=== PATIENT | female | born 1935 | race Hispanic/Latino ===

== ENCOUNTER 2016-06-13 13:55 | Observation (INO) | payer MEDICARE ==
[2016-06-13 13:55] VITALS: BMI 23.4
[2016-06-13] MEDS ORDERED: Sodium Chloride 0.9% 1,000 ML IV STA (14:38)
[2016-06-13] MEDS ORDERED: Iohexol 240 (50 ml) PO ONE (14:39)
--- NOTE | 2016-06-13 14:47 | ED PDOC ---
HPI:Nausea, Vomiting, Diarrhea Time Seen by Provider: 06/13/16 14:13 Chief Complaint (Nursing): Fever Chief Complaint (Provider): Nausea/Vomiting/Diarrhea History Per: Patient, Family (niece) History/Exam Limitations: no limitations Onset/Duration Of Symptoms: Hrs (this afternoon, 06/13/2016) Current Symptoms Are (Timing): Still Present Have you had recent travel within the past 21 days to any of the following countries: [place], [place], [place] or [place]?: No Severity: Moderate Associated Symptoms: Fever, Chills, Nausea, Vomiting (non-bloody, non-bilious), Diarrhea Exacerbating Factors: None Alleviating Factors: None Last Bowel Movement: Today Additional History Per: EMS Additional Complaint(s): Jazmin Rossi is an 81 year old female, with a past medical history of coronary artery disease, hypertension, type 2 diabetes, and pneumonia, who presents to the emergency department via EMS for the evaluation of nausea, two episodes of non-bloody or bilious vomiting, and one episode of watery diarrhea, that the patient has been experiencing since this afternoon on 06/13/2016. Patient's niece reports her having an episode of generalized weakness inclusive of difficulty ambulating and altered mental status, in which she wouldn't respond at all, so she called 911; however, since entering the ambulance, the patient perked up and began talking again. PMD: Sage Valencia Past Medical History Reviewed: Historical Data, Nursing Documentation, Vital Signs Vital Signs: Last Vital Signs Temp 102 F H 06/13/16 13:58 Pulse 120 H 06/13/16 13:58 Resp 18 06/13/16 13:58 BP 133/65 06/13/16 13:58 Pulse Ox 95 06/13/16 13:58 - Medical History PMH: Back Problems, CAD, CVA (no deficits), Diabetes (type 2), HTN, Osteoporosis , Pneumonia Denies: Arthritis, Atrial Fibrillation, Cardia Arrhythmia, CHF, COPD, Hypercholesterolemia, Hypothyroidism, Mitral Valve Prolapse, Peripheral Edema, Chronic Kidney Disease, Rheumatoid Arthritis - Surgical History Surgical History: Cholecystectomy, Hernia Repair Denies: Pacemaker Other surgeries: Cataract Extraction - Family History Family History: States: No Known Family Hx - Immunization History Hx Tetanus Toxoid Vaccination: No Hx Influenza Vaccination: No Hx Pneumococcal Vaccination: No - Home Medications Home Medications: Ambulatory Orders Medication Instructions Recorded Cholecalciferol [Vitamin D 1000 IU] 1,000 unit PO DAILY 06/13/16 Cyanocobalamin [Vitamin B12 1000 1,000 mcg PO DAILY 06/13/16 mcg Tab] Ginkgo Biloba 1 cap PO DAILY 06/13/16 Losartan/Hydrochlorothiazide 1 tab PO DAILY 06/13/16 [Hyzaar 100-12.5 Tablet] Meloxicam [Mobic] 15 mg PO DAILY 06/13/16 Methotrexate 25 mg PO SAT 06/13/16 Metoprolol Tartrate [Lopressor] 25 mg PO DAILY 06/13/16 Rivastigmine 9.5 mg/24 hr [Exelon 1 patch TD DAILY 06/13/16 9.5 mg/24 hr Patch] - Allergies Allergies/Adverse Reactions: Allergies Allergy/AdvReac Type Severity Reaction Status Date / Time No Known Allergies Allergy Unverified 03/28/16 11:38 Review of Systems ROS Statement: Except As Marked, All Systems Reviewed And Found Negative Constitutional: Positive for: Fever, Chills Gastrointestinal: Positive for: Nausea, Vomiting (non-bloody or bilious), Diarrhea (watery) Neurological: Positive for: Weakness, Altered Mental Status (one episode) Physical Exam - Reviewed Nursing Documentation Reviewed: Yes Vital Signs Reviewed: Yes - Physical Exam Appears: Positive for: Well (interactive and smiling), Non-toxic, No Acute Distress Head Exam: Positive for: ATRAUMATIC, NORMOCEPHALIC Skin: Positive for: Normal Color, Warm, Dry Neck: Positive for: Normal, Painless ROM Cardiovascular/Chest: Positive for: Regular Rate, Rhythm. Negative for: Murmur Respiratory: Positive for: Normal Breath Sounds. Negative for: Respiratory Distress Gastrointestinal/Abdominal: Positive for: Normal Exam, Soft. Negative for: Tenderness Back: Positive for: Normal Inspection. Negative for: L CVA Tenderness, R CVA Tenderness Extremity: Positive for: Normal ROM. Negative for: Tenderness Neurologic/Psych: Positive for: Alert, Oriented - Laboratory Results Result Diagrams: 06/14/16 04:00 06/14/16 05:30 - ECG O2 Sat by Pulse Oximetry: 95 (RA) Pulse Ox Interpretation: Normal Medical Decision Making Medical Decision Makin:13 Initial Impression: gastroenteritis versus diverticulitis or other abdominal related issues Initial Plan: * CT Abdomen & Pelvis w/ PO and IV Contrast * EKG * Chest X-Ray * Venous Blood Gas * CBC * CMP * Troponin I * Lipase * UA * Sodium Chloride 0.9% 1,000 ml IV at 500 mls/hr * Zofran 4 mg IVP * Blood Culture * Urine Culture * ED Observation 14:39 Patient will be placed within ED Observation secondary to time-extensive ED workup. Pending imaging studies. See Observation note for further updates. Scribe Attestation: Documented by Sukhi Navarro, acting as a scribe for Carla Bernal MD. Provider Scribe Attestation: All medical record entries made by the Scribe were at my direction and personally dictated by me. I have reviewed the chart and agree that the record accurately reflects my personal performance of the history, physical exam, medical decision making, and the department course for this patient. I have also personally directed, reviewed, and agree with the discharge instructions and disposition. ED OBSERVATION Date of observation admission: 06/13/16 Time of observation admission: 14:39 - Observation admission statement Patient is being placed in observation because:: Time-extensive ED workup. - Goals of Observation Goals of observation are:: Pending imaging studies. Disposition - Clinical Impression Clinical Impression: Gastroenteritis - Disposition Disposition: Transfer of Care Disposition Time: 15:00 Condition: SERIOUS Patient Signed Over To: Azalea Torres Handoff Comments: pending CT
[2016-06-13 14:59] LABS: VENOUS BLOOD GAS BASE EXCESS 7.4 mmol/L (0.0-2.0); VENOUS BLOOD GAS PCO2 40 mmHg (40-60)
[2016-06-13 15:04] LABS: BASO % 0.3 % (0.0-2.0); HEMATOCRIT 35.6 % (34.0-47.0); LYMPH # 0.2 K/uL (1.0-4.3); LYMPH % 1.7 % (20.0-40.0); MEAN CELL VOLUME 93.3 fl (81.0-99.0); MEAN CORPUSCULAR HEMOGLOBIN 31.3 pg (27.0-31.0); MEAN CORPUSCULAR HGB CONC 33.6 g/dL (33.0-37.0); MEAN PLATELET VOLUME 6.7 fl (7.2-11.7); MONO # 0.3 K/uL (0.0-0.8); MONO % 2.4 % (0.0-10.0); NEUT # 11.3 K/uL (1.8-7.0); NEUT % 95.6 % (50.0-75.0); PLATELET COUNT 221 K/uL (130-400); RED CELL DISTRIBUTION WIDTH 12.2 % (11.5-14.5); WHITE BLOOD COUNT 11.8 K/uL (4.8-10.8)
[2016-06-13 15:16] LABS: ALB/GLOB RATIO 1.1 (1.0-2.1); ALKALINE PHOSPHATASE 90 U/L (38-126); ALT/SGPT 29 U/L (9-52); AST/SGOT 38 U/L (14-36); BILIRUBIN,TOTAL 0.8 mg/dl (0.2-1.3); BLOOD UREA NITROGEN 19 mg/dl (7-17); CALCIUM 9.4 mg/dL (8.4-10.2); CARBON DIOXIDE 26 mmol/L (22-30); CHLORIDE 102 mmol/L (98-107); GFR AFRICAN-AMERICAN > 60; GLUCOSE,RANDOM 118 mg/dL (65-105); LIPASE 190 U/L (23-300); POTASSIUM 3.5 MMOL/L (3.6-5.0); SODIUM 138 mmol/l (132-148); TOTAL PROTEIN 7.4 G/DL (6.3-8.2)
[2016-06-13] MEDS ORDERED: Iohexol 240 (50 ml) ONE (15:20)
--- NOTE | 2016-06-13 15:33 | ED PDOC ---
- Laboratory Results Result Diagrams: 06/13/16 14:51 06/13/16 14:51 - ECG O2 Sat by Pulse Oximetry: 95 (RA) Medical Decision Making Medical Decision Makin:00 Patient transferred over to provider by Dr. Aguirre. Pending ER workup, re- assessment, and final disposition. 15:30 Patient's labs demonstrated early hypokalemia and early renal insufficiency, c/ w dehydration. DW family and pt. Patient feels well, however family reports that she always says she feels well and that earlier today at home she was very lightheaded and unsteady from the vomiting and fever. Will hospitalize in obs for continued IV hydration, pending CT scan. Scribe Attestation: Documented by Sukhi Navarro, acting as a scribe for Azalea Torres MD. Provider Scribe Attestation: All medical record entries made by the Scribe were at my direction and personally dictated by me. I have reviewed the chart and agree that the record accurately reflects my personal performance of the history, physical exam, medical decision making, and the department course for this patient. I have also personally directed, reviewed, and agree with the discharge instructions and disposition. Disposition - Clinical Impression Clinical Impression: Gastroenteritis - POA Present On Arrival: None - Disposition Disposition: Hospitalized as Observation Patient Disposition Time: 14:40
[2016-06-13 16:12] LABS: RBC URINE 1 /hpf (0-3); URINE BILIRUBIN NEGATIVE (NEGATIVE); URINE BLOOD NEGATIVE (NEGATIVE); URINE COLOR YELLOW (YELLOW); URINE GLUCOSE (UA) NEG (Normal); URINE KETONE NEGATIVE (NEGATIVE); URINE LEUKOCYTE ESTERASE NEG Leu/uL (Negative); URINE PROTEIN NEGATIVE (NEGATIVE); URINE UROBILINOGEN 0.2-1.0 mg/dL (0.2-1.0); WBC URINE 2 /hpf (0-5)
[2016-06-13 17:06] LABS: NEUTROPHIL 97 % (42-75); TOTAL CELLS COUNTED 100
[2016-06-13] MEDS ORDERED: Iohexol 300 100 ML IJ ONE (17:16)
[2016-06-13] MEDS ORDERED: Sodium Chloride 0.9% 50 ML IV ONE (17:16)
--- NOTE | 2016-06-13 18:46 | CT ---
PROCEDURE: CT Abdomen and Pelvis with contrast HISTORY: n/v/d, fever COMPARISON: Comparison is made to the previous study dated 10/01/2010 TECHNIQUE: Axial and reformatted coronal and sagittal CT images of the abdomen and pelvis were obtained after IV and oral contrast administration. Contrast dose: 90 mL Omnipaque 300 Radiation dose: Total exam DLP = 532.9 mGy-cm. This CT exam was performed using one or more of the following dose reduction techniques: Automated exposure control, adjustment of the mA and/or kV according to patient size, and/or use of iterative reconstruction technique. FINDINGS: LOWER THORAX: Small cystic formation seen at the right lower lobe again. No evidence of pneumonia. The heart is mildly to moderately enlarged. Small hiatus hernia seen. LIVER: No evidence of suspicious mass or acute pathology in the liver. GALLBLADDER AND BILE DUCTS: Status post cholecystectomy. PANCREAS: Unremarkable. No gross lesion or ductal dilatation. SPLEEN: Unremarkable. ADRENALS: Unremarkable. No mass. KIDNEYS AND URETERS: The collecting system of the kidneys are mildly dilated demonstrate mild wall thickening. Correlate clinically for infectious process/ UTI. Mild perinephric stranding and trace fluid seen bilaterally. The kidneys are otherwise enhance symmetrically. VASCULATURE: Unremarkable. No aortic aneurysm. BOWEL: Colonic diverticulosis are noted more prominent at the sigmoid colon. Diffuse sigmoid colon wall thickening seen. APPENDIX: No evidence of appendicitis PERITONEUM: Unremarkable. No free fluid. No free air. LYMPH NODES: Unremarkable. No enlarged lymph nodes. BLADDER: Unremarkable. REPRODUCTIVE: Unremarkable. BONES: No acute fracture. OTHER FINDINGS: Again seen is low-attenuation lesion at the right mid to upper abdomen just inferior to the pancreatic head measures 1.7 centimeter appears smaller compared to the previous exam. IMPRESSION: Diffuse wall thickening of the collecting system of the kidneys. Correlate clinically for UTI. Mild bilateral perinephric stranding and trace fluid seen. Otherwise no evidence of acute pathology in the abdomen and pelvis. Large sigmoid colon diverticulosis associated with diffuse wall thickening. No definite evidence of diverticulitis.
[2016-06-13] MEDS: Dextrose 5%/Lactated Ringer's 1,000 ML IV SCH (22:38)
--- NOTE | 2016-06-14 06:52 | RAD ---
HISTORY: fever COMPARISON: No prior. FINDINGS: LUNGS: No active pulmonary disease. PLEURA: No significant pleural effusion identified, no pneumothorax apparent. CARDIOVASCULAR: Normal. OSSEOUS STRUCTURES: No significant abnormalities. VISUALIZED UPPER ABDOMEN: Normal. OTHER FINDINGS: None. IMPRESSION: No active disease.
[2016-06-14 07:32] VITALS: BP 115/65; PULSE 65; RESP 18; TEMP 99.6; O2SAT 95
[2016-06-14 07:45] LABS: MEAN CELL VOLUME 93.7 fl (81.0-99.0); MEAN CORPUSCULAR HEMOGLOBIN 32.2 pg (27.0-31.0); MEAN CORPUSCULAR HGB CONC 34.3 g/dL (33.0-37.0); RED CELL DISTRIBUTION WIDTH 12.2 % (11.5-14.5); WHITE BLOOD COUNT 10.3 K/uL (4.8-10.8)
[2016-06-14 08:26] LABS: ALKALINE PHOSPHATASE 54 U/L (38-126); ALT/SGPT 23 U/L (9-52); AST/SGOT 31 U/L (14-36); BILIRUBIN,TOTAL 0.5 mg/dl (0.2-1.3); BLOOD UREA NITROGEN 14 mg/dl (7-17); CALCIUM 8.8 mg/dL (8.4-10.2); CARBON DIOXIDE 30 mmol/L (22-30); CHLORIDE 103 mmol/L (98-107); GFR AFRICAN-AMERICAN > 60; GLUCOSE,RANDOM 110 mg/dL (65-105); POTASSIUM 4.2 MMOL/L (3.6-5.0); SODIUM 140 mmol/l (132-148); TOTAL PROTEIN 6.3 G/DL (6.3-8.2)
[2016-06-14] MEDS: Dextrose 5%/Lactated Ringer's 1,000 ML IV SCH (08:42)
--- NOTE | 2016-06-14 11:25 | CARD ---
APPROVED REPORT EKG Measurement Heart [id number] <Conclusion> Sinus tachycardia Left axis deviation Right bundle branch block Abnormal ECG
--- NOTE | 2016-06-14 15:10 | CP.PCM.HP ---
History of Present Illness - History of Present Illness History of Present Illness: This is an 81 y/o female with hx of CAD DM 2 HTn diverticuloses was admitted through the Er last night for episodes of vomiting and diarrhea and sudden generalized weakness. She was very weak when 911 was called and could hardly respond. She has no fever. Claims that she took her usual cereal with milk then started vomiting after. She was started on NPO and IV fluids. She responded well and was started on soft diet this morning which she tolerated well. Present on Admission - Present on Admission Any Indicators Present on Admission: No History of DVT/PE: No History of Uncontrolled Diabetes: No Urinary Catheter: No Decubitus Ulcer Present: No Past Patient History - Infectious Disease Hx of Infectious Diseases: None - Past Medical History & Family History Past Medical History?: Yes - Past Social History Smoking Status: Never Smoked - CARDIAC Hx Cardiac Disorders: Yes Hx Hypertension: Yes Other/Comment: cva no deficit - PULMONARY Hx Respiratory Disorders: No Hx Pneumonia: Yes - NEUROLOGICAL Hx Neurological Disorder: No - HEENT Hx HEENT Problems: Yes Hx Cataracts: Yes (s/p cataract sx ou) - RENAL Hx Chronic Kidney Disease: No - ENDOCRINE/METABOLIC Hx Diabetes Mellitus Type 2: Yes Hx Hypothyroidism: No - HEMATOLOGICAL/ONCOLOGICAL Hx AIDS: No Hx Human Immunodeficiency Virus (HIV): No - INTEGUMENTARY Hx Dermatological Problems: No - MUSCULOSKELETAL/RHEUMATOLOGICAL Hx Back Pain: Yes Hx Falls: No Hx Osteoporosis: Yes - GASTROINTESTINAL Hx Gastrointestinal Disorders: No - GENITOURINARY/GYNECOLOGICAL Hx Genitourinary Disorders: No - PSYCHIATRIC Hx Substance Use: No - SURGICAL HISTORY Hx Cholecystectomy: Yes Hx Herniorrhaphy: Yes Other/Comment: cat sx ou - ANESTHESIA Hx Anesthesia: Yes Hx Anesthesia Reactions: No Hx Malignant Hyperthermia: No Meds Allergies/Adverse Reactions: Allergies Allergy/AdvReac Type Severity Reaction Status Date / Time No Known Allergies Allergy Unverified 03/28/16 11:38 Physical Exam - Head Exam Head Exam: NORMAL INSPECTION - Eye Exam Eye Exam: Normal appearance - Neck Exam Neck exam: Positive for: Normal Inspection - Respiratory Exam Respiratory Exam: Clear to Auscultation Bilateral - Cardiovascular Exam Cardiovascular Exam: REGULAR RHYTHM - GI/Abdominal Exam GI & Abdominal Exam: Normal Bowel Sounds - Neurological Exam Neurological exam: CN II-XII Intact, Oriented x3 - Psychiatric Exam Psychiatric exam: Normal Mood Results - Vital Signs Recent Vital Signs: Last Vital Signs Temp 99.6 F 06/14/16 07:32 Pulse 65 06/14/16 07:32 Resp 18 06/14/16 07:32 BP 115/65 06/14/16 07:32 Pulse Ox 95 06/14/16 07:32 - Labs Result Diagrams: 06/14/16 04:00 06/14/16 05:30 Labs: Laboratory Results - last 24 hr 06/13/16 06/13/16 06/13/16 14:51 14:51 15:45 WBC 11.8 H RBC 3.81 Hgb 11.9 L Hct 35.6 MCV 93.3 MCH 31.3 H MCHC 33.6 RDW 12.2 Plt Count 221 D MPV 6.7 L Neut % (Auto) 95.6 H Lymph % (Auto) 1.7 L [place] % (Auto) 2.4 Eos % (Auto) 0.0 Baso % (Auto) 0.3 Neut # 11.3 H Lymph # 0.2 L [place] # 0.3 Eos # 0.0 Baso # 0.0 Neutrophils % (Manual) 97 H Lymphocytes % (Manual) 1 L Monocytes % (Manual) 2 Platelet Estimate Normal RBC Morphology Normal Sodium 138 Potassium 3.5 L Chloride 102 Carbon Dioxide 26 Anion Gap 14 BUN 19 H Creatinine 0.7 Est GFR ( Amer) > 60 Est GFR (Non-Af Amer) > 60 Random Glucose 118 H Calcium 9.4 Total Bilirubin 0.8 AST 38 H ALT 29 Alkaline Phosphatase 90 Troponin I < 0.0120 Total Protein 7.4 Albumin 3.8 Globulin 3.6 Albumin/Globulin Ratio 1.1 Lipase 190 Urine Color Yellow Urine Clarity Clear Urine pH 7.0 Ur Specific [place] 1.012 Urine Protein Negative Urine Glucose (UA) Neg Urine Ketones Negative Urine Blood Negative Urine Nitrate Negative Urine Bilirubin Negative Urine Urobilinogen 0.2-1.0 Ur Leukocyte Esterase Neg Urine RBC (Auto) 1 Urine Microscopic WBC 2 06/14/16 06/14/16 04:00 05:30 WBC 10.3 RBC 3.31 L Hgb 10.7 L Hct 31.0 L MCV 93.7 MCH 32.2 H MCHC 34.3 RDW 12.2 Plt Count 202 MPV Neut % (Auto) Lymph % (Auto) [place] % (Auto) Eos % (Auto) Baso % (Auto) Neut # Lymph # [place] # Eos # Baso # Neutrophils % (Manual) Lymphocytes % (Manual) Monocytes % (Manual) Platelet Estimate RBC Morphology Sodium 140 Potassium 4.2 Chloride 103 Carbon Dioxide 30 Anion Gap 11 BUN 14 Creatinine 1.0 Est GFR ( Amer) > 60 Est GFR (Non-Af Amer) 53 Random Glucose 110 H Calcium 8.8 Total Bilirubin 0.5 AST 31 ALT 23 Alkaline Phosphatase 54 Troponin I Total Protein 6.3 Albumin 3.1 L Globulin 3.2 Albumin/Globulin Ratio 1.0 Lipase Urine Color Urine Clarity Urine pH Ur Specific [place] Urine Protein Urine Glucose (UA) Urine Ketones Urine Blood Urine Nitrate Urine Bilirubin Urine Urobilinogen Ur Leukocyte Esterase Urine RBC (Auto) Urine Microscopic WBC Assessment & Plan (1) Dehydration Status: Acute (2) Gastroenteritis Status: Acute (3) DM2 (diabetes mellitus, type 2) Status: Acute - Assessment and Plan (Free Text) Plan: continue advance diet discussed with patient will send home on [facility]oh[facility] prn follow up with Dr Pan Valencia in 1 week.
--- NOTE | 2016-06-14 15:16 | CP.PCM.DIS ---
Provider - Provider Date of Admission: 06/13/16 14:39 Attending physician: Yonatan Ventura MD Time Spent in preparation of Discharge (in minutes): 30 Diagnosis - Discharge Diagnosis (1) Dehydration Status: Acute (2) Gastroenteritis Status: Acute (3) DM2 (diabetes mellitus, type 2) Status: Acute Hospital Course - Lab Results Lab Results: Micro Results 06/13/16 14:57 Blood Blood Culture - Preliminary NO GROWTH AFTER 24 HOURS 06/13/16 15:55 Urine,Clean Catch Urine Culture - Final No Growth (<1,000 CFU/ML) Most Recent Lab Values WBC 10.3 K/uL (4.8-10.8) 06/14/16 04:00 RBC 3.31 Mil/uL (3.80-5.20) L 06/14/16 04:00 Hgb 10.7 g/dL (12.0-16.0) L 06/14/16 04:00 Hct 31.0 % (34.0-47.0) L 06/14/16 04:00 MCV 93.7 fl (81.0-99.0) 06/14/16 04:00 MCH 32.2 pg (27.0-31.0) H 06/14/16 04:00 MCHC 34.3 g/dL (33.0-37.0) 06/14/16 04:00 RDW 12.2 % (11.5-14.5) 06/14/16 04:00 Plt Count 202 K/uL (130-400) 06/14/16 04:00 MPV 6.7 fl (7.2-11.7) L 06/13/16 14:51 Neut % (Auto) 95.6 % (50.0-75.0) H 06/13/16 14:51 Lymph % (Auto) 1.7 % (20.0-40.0) L 06/13/16 14:51 [place] % (Auto) 2.4 % (0.0-10.0) 06/13/16 14:51 Eos % (Auto) 0.0 % (0.0-4.0) 06/13/16 14:51 Baso % (Auto) 0.3 % (0.0-2.0) 06/13/16 14:51 Neut # 11.3 K/uL (1.8-7.0) H 06/13/16 14:51 Lymph # 0.2 K/uL (1.0-4.3) L 06/13/16 14:51 [place] # 0.3 K/uL (0.0-0.8) 06/13/16 14:51 Eos # 0.0 K/uL (0.0-0.7) 06/13/16 14:51 Baso # 0.0 K/uL (0.0-0.2) 06/13/16 14:51 Neutrophils % (Manual) 97 % (42-75) H 06/13/16 14:51 Lymphocytes % (Manual) 1 % (20-50) L 06/13/16 14:51 Monocytes % (Manual) 2 % (0-10) 06/13/16 14:51 Platelet Estimate Normal (NORMAL) 06/13/16 14:51 RBC Morphology Normal (NORMAL) 06/13/16 14:51 pO2 36 mm/Hg (30-55) 06/13/16 14:50 VBG pH 7.50 (7.32-7.43) H 06/13/16 14:50 VBG pCO2 40 mmHg (40-60) 06/13/16 14:50 VBG HCO3 30.1 mmol/L 06/13/16 14:50 VBG Total CO2 32.4 mmol/L (22-28) H 06/13/16 14:50 VBG O2 Sat (Calc) 77.9 % (40-65) H 06/13/16 14:50 VBG Base Excess 7.4 mmol/L (0.0-2.0) H 06/13/16 14:50 VBG Potassium 3.5 mmol/L (3.6-5.2) L 06/13/16 14:50 Sodium 141.0 mmol/L (132-148) 06/13/16 14:50 Chloride 106.0 mmol/L (98-107) 06/13/16 14:50 Glucose 118 mg/dL (65-105) H 06/13/16 14:50 Lactate 1.4 mmol/L (0.7-2.1) 06/13/16 14:50 FiO2 21.0 % 06/13/16 14:50 Sodium 140 mmol/l (132-148) 06/14/16 05:30 Potassium 4.2 MMOL/L (3.6-5.0) 06/14/16 05:30 Chloride 103 mmol/L (98-107) 06/14/16 05:30 Carbon Dioxide 30 mmol/L (22-30) 06/14/16 05:30 Anion Gap 11 (10-20) 06/14/16 05:30 BUN 14 mg/dl (7-17) 06/14/16 05:30 Creatinine 1.0 mg/dL (0.7-1.2) 06/14/16 05:30 Est GFR ( Amer) > 60 06/14/16 05:30 Est GFR (Non-Af Amer) 53 06/14/16 05:30 Random Glucose 110 mg/dL (65-105) H 06/14/16 05:30 Calcium 8.8 mg/dL (8.4-10.2) 06/14/16 05:30 Total Bilirubin 0.5 mg/dl (0.2-1.3) 06/14/16 05:30 AST 31 U/L (14-36) 06/14/16 05:30 ALT 23 U/L (9-52) 06/14/16 05:30 Alkaline Phosphatase 54 U/L (38-126) 06/14/16 05:30 Troponin I < 0.0120 ng/mL (0.00-0.120) 06/13/16 14:51 Total Protein 6.3 G/DL (6.3-8.2) 06/14/16 05:30 Albumin 3.1 g/dL (3.5-5.0) L 06/14/16 05:30 Globulin 3.2 gm/dL (2.2-3.9) 06/14/16 05:30 Albumin/Globulin Ratio 1.0 (1.0-2.1) 06/14/16 05:30 Lipase 190 U/L (23-300) 06/13/16 14:51 Venous Blood Potassium 3.5 mmol/L (3.6-5.2) L 06/13/16 14:50 Urine Color Yellow (YELLOW) 06/13/16 15:45 Urine Clarity Clear (Clear) 06/13/16 15:45 Urine pH 7.0 (5.0-8.0) 06/13/16 15:45 Ur Specific [place] 1.012 (1.003-1.030) 06/13/16 15:45 Urine Protein Negative mg/dL (NEGATIVE) 06/13/16 15:45 Urine Glucose (UA) Neg mg/dL (Normal) 06/13/16 15:45 Urine Ketones Negative mg/dL (NEGATIVE) 06/13/16 15:45 Urine Blood Negative (NEGATIVE) 06/13/16 15:45 Urine Nitrate Negative (NEGATIVE) 06/13/16 15:45 Urine Bilirubin Negative (NEGATIVE) 06/13/16 15:45 Urine Urobilinogen 0.2-1.0 mg/dL (0.2-1.0) 06/13/16 15:45 Ur Leukocyte Esterase Neg [place]/uL (Negative) 06/13/16 15:45 Urine RBC (Auto) 1 /hpf (0-3) 06/13/16 15:45 Urine Microscopic WBC 2 /hpf (0-5) 06/13/16 15:45 - Hospital Course Hospital Course: This is an 81 y/o female admitted for gastroenteritis and dehydration with few episodes of vomiting and diarrhea. There was no fever. She received few liters of IV fluids and responded very well. Diet was advanced and tolerated well and was sent home. All labs were normal on discharge. Discharge Exam - Head Exam Head Exam: NORMAL INSPECTION - Respiratory Exam Respiratory Exam: NORMAL BREATHING PATTERN - Cardiovascular Exam Cardiovascular Exam: REGULAR RHYTHM - GI/Abdominal Exam GI & Abdominal Exam: Normal Bowel Sounds - Neurological Exam Neurological exam: CN II-XII Intact - Psychiatric Exam Psychiatric exam: Normal Mood Discharge Plan - Follow Up Plan Condition: SERIOUS Disposition: HOME/ ROUTINE Additional Instructions: advised follow up with Dr Pan Valencia in 1 to 2 week Rx Leanna.
== END 2016-06-14 18:26 | disposition home or self-care (01) ==
LOC: H.ER 13:55 → H.EROBSV 14:39 → H.ERHOLD 16:27 → H.MEDSURG1 21:47
PROVIDERS: ADMIT Family Medicine; ATTEND Family Medicine
DX: E86.0 Dehydration (principal); I25.10 Atherosclerotic heart disease of native coronary artery without angina pectoris; I10 Essential (primary) hypertension; E11.9 Type 2 diabetes mellitus without complications; Z86.73 Personal history of transient ischemic attack (TIA), and cerebral infarction without residual deficits; K52.9 Noninfective gastroenteritis and colitis, unspecified; E87.6 Hypokalemia
CPT/HCPCS: 36415; 71010; 74177; 80053; 81003; 82803; 83690; 84484; 85025; 85027; 87040; 87086; 93005; 96374; 99285; C9113; G0378; J2405; J7040; J7120; Q9966; Q9967